=== PATIENT | male | born 1965 | race Caucasian/White ===

== ENCOUNTER → 2024-02-17 | Emergency (ER) | payer MEDICAID ==
[~2024-02-17] VITALS: Ht 175.3 cm; Wt 99.8 kg
[~2024-02-17] MED LIST: CEPH-548 PO; DIPHENHYDRAMINE INJ 50 MG/ML VIAL IVP ONE; HYDR-3917 PO; TRAM50TA2 PO; ceFAZolin SODIUM 1 GM VIAL ONE
[2024-02-17 12:00] VITALS: BP_SYST 138; PULSE 67; RESP 20; TEMP 97.8; O2SAT 97
[2024-02-17] MEDS: MORPHINE 4 MG INJ. 4 MG/ML VIAL IVP ONE (13:15)
[2024-02-17] MEDS: ceFAZolin SODIUM 1 GM in D5W 50 ML IV ONE (13:15)
[2024-02-17 14:36] VITALS: BP_SYST 128; PULSE 66; RESP 20; TEMP 97.8; O2SAT 98
== END | disposition home or self-care (01) ==
LOC: SED 11:56
DX: S61.012A Laceration without foreign body of left thumb without damage to nail, initial encounter (principal); R20.0 Anesthesia of skin; Z79.899 Other long term (current) drug therapy; Z79.2 Long term (current) use of antibiotics; W26.8XXA Contact with other sharp object(s), not elsewhere classified, initial encounter; Y93.89 Activity, other specified; Y92.89 Other specified places as the place of occurrence of the external cause; Y99.8 Other external cause status
CPT/HCPCS: 99284; 96365; 96375; 73140; 12002; J0690; J2270